=== PATIENT | male | born 1960 | race Caucasian/White ===

== ENCOUNTER → 2016-08-20 08:41 | Outpatient (CLI) | payer OTHER, MEDICARE ==
[~2016-08-20 08:41] MED LIST: CARAFATE1 G; CHRONULAC30 ML PO; INDERAL10 MG; MULTI-DAY VITAM1 TAB PO; PEPCID20 MG PO; PROTONIX40 MG PO; TYLENOL 8 HOUR650 MG PO
[2016-08-20 09:22] LABS: BASOPHILS 0.6 % (0.0-2.0); EOSINOPHILS 2.3 % (0-7); HEMATOCRIT 39.3 % (42.0-54.0); HEMOGLOBIN 13.2 g/dL (13.5-17.5); IMMATURE GRANULOCYTES 0.1 % (0-5); LYMPHOCYTES 25.9 % (15-50); MCH 28.3 pg (26.0-34.0); MCHC 33.6 g/dL (31.0-37.0); MCV 84.3 fL (80.0-100.0); MEAN PLATELET VOLUME 12.2 fL (7.4-10.4); MONOCYTES 11.3 % (2-11); NEUTROPHILS 59.8 % (40-80); PLATELET COUNT 125 10x3/uL (130-400); RBC 4.66 10x6/uL (4.20-6.10); RDW 15.3 % (11.5-14.5); WBC 6.8 10x3/uL (4.8-10.8)
[2016-08-20 09:29] LABS: INR 1.28 (0.85-1.17); PROTIME 15.9 SECONDS (11.6-15.0)
== END | disposition home or self-care (01) ==
LOC: D.US 08:41
PROVIDERS: Internal Medicine Gastroenterology
DX: K70.30 Alcoholic cirrhosis of liver without ascites (principal)

== ENCOUNTER → 2017-02-19 08:53 | Outpatient (CLI) | payer OTHER, MEDICARE ==
[2017-02-19 09:22] LABS: BASOPHILS 0.8 % (0-2); EOSINOPHILS 2.1 % (0-7); HEMATOCRIT 39.1 % (42.0-54.0); HEMOGLOBIN 13.3 g/dL (13.5-17.5); IMMATURE GRANULOCYTES 0.3 % (0-5); LYMPHOCYTES 27.3 % (15-50); MCH 28.7 pg (26.0-34.0); MCV 84.3 fL (80.0-100.0); MONOCYTES 11.3 % (2-11); NEUTROPHILS 58.2 % (40-80); RBC 4.64 10x6/uL (4.20-6.10); RDW 15.9 % (11.5-14.5); WBC 6.2 10x3/uL (4.8-10.8)
[2017-02-19 09:28] LABS: INR 1.24 (0.85-1.17); PROTIME 15.4 SECONDS (11.6-15.0)
[2017-02-19 09:35] LABS: ALBUMIN 3.3 g/dL (3.4-5.0); ALKALINE PHOSPHATASE 51 U/L (46-116); ALT (SGPT) 27 U/L (10-68); BILIRUBIN - TOTAL 1.68 mg/dL (0.2-1.3); CALC OSMOLALITY 277 mosm/kg (275-300); CALCIUM 8.6 mg/dL (8.5-10.1); CARBON DIOXIDE 27.6 mmol/L (21.0-32.0); CHLORIDE - SERUM 106 mmol/L (98-107); GLUCOSE 87 mg/dL (74-106); POTASSIUM - SERUM 4.2 mmol/L (3.5-5.1); PROTEIN - SERUM 6.6 g/dL (6.4-8.2); SODIUM 140 mmol/L (136-145); UREA NITROGEN 13 mg/dL (7-18); eGFR NON AFRICAN AMERICAN 82 mL/min (90-120)
[2017-02-19 09:41] LABS: PLATELET COUNT 93 10x3/uL (130-400)
[2017-02-19 10:53] LABS: PLATELET ESTIMATE DECREASED
== END | disposition home or self-care (01) ==
LOC: D.LAB 08:53 → D.US 09:30 → D.CT 10:00
PROVIDERS: Internal Medicine Gastroenterology
DX: K74.60 Unspecified cirrhosis of liver (principal); I86.4 Gastric varices; K76.6 Portal hypertension; I81 Portal vein thrombosis

== ENCOUNTER 2017-05-20 09:34 | Day surgery (SDC) | payer OTHER, MEDICARE ==
[~2017-05-20 09:34] MED LIST changes: -INDERAL10 MG; +INDERAL10 MG PO
[2017-05-20 10:12] VITALS: BP 150/66; BMI 23.7
[2017-05-20 10:28] LABS: APTT 39.7 SECONDS (22.8-39.4)
[2017-05-20 10:29] LABS: HEMATOCRIT 39.3 % (42.0-54.0); HEMOGLOBIN 13.4 g/dL (13.5-17.5); INR 1.24 (0.85-1.17); MCH 28.8 pg (26.0-34.0); MCHC 34.1 g/dL (31.0-37.0); MCV 84.3 fL (80.0-100.0); PLATELET COUNT 103 10x3/uL (130-400); PROTIME 15.5 SECONDS (11.6-15.0); RBC 4.66 10x6/uL (4.20-6.10); RDW 15.8 % (11.5-14.5); WBC 5.9 10x3/uL (4.8-10.8)
[2017-05-20 10:35] LABS: ALBUMIN 3.3 g/dL (3.4-5.0); ALKALINE PHOSPHATASE 50 U/L (46-116); ALT (SGPT) 28 U/L (10-68); BILIRUBIN - TOTAL 1.61 mg/dL (0.2-1.3); CALC OSMOLALITY 279 mosm/kg (275-300); CALCIUM 9.3 mg/dL (8.5-10.1); CARBON DIOXIDE 25.1 mmol/L (21.0-32.0); CHLORIDE - SERUM 108 mmol/L (98-107); CREATININE - SERUM 0.9 mg/dL (0.6-1.3); GLUCOSE 86 mg/dL (74-106); PROTEIN - SERUM 6.8 g/dL (6.4-8.2); SODIUM 141 mmol/L (136-145); UREA NITROGEN 13 mg/dL (7-18); eGFR NON AFRICAN AMERICAN > 90 mL/min (90-120)
[2017-05-20 10:36] LABS: POTASSIUM - SERUM 4.4 mmol/L (3.5-5.1)
--- NOTE | 2017-05-20 13:19 | NUR ---
1320 DISCHARGE INSTRUCTIONS COMPLETE. PT HAS NO QUESTIONS OR CONCERNS AT THIS TIME. ESCORTED OUT BY VOLUNTEER.
--- NOTE | 2017-06-04 07:24 | OP ---
PATIENT NAME: MARIA D HERNANDEZ MEDICAL RECORD: [id number] :62 LOCATION:[facility] ADMISSION DATE: SURGEON: RENATE WAITE DO DATE OF OPERATION: 05/20/2017 PROCEDURE: EGD. INDICATION FOR PROCEDURE: Surveillance of esophageal varices in known cirrhosis of the liver. SCOPE: maniaTV video gastroscope. MEDICATIONS: Propofol 300 mg IV per anesthesia. ESTIMATED BLOOD LOSS: None. COMPLICATIONS: None. FINDINGS: Informed consent was given. The patient was made comfortable with the above medication. After reaching an adequate level of sedation by slow IV push, the patient was placed on his left side. The endoscope was then advanced under direct visualization through the mouth to the second portion of the duodenum. The upper esophagus appeared normal. In the middle esophagus, there were grade III esophageal varices without bleeding stigmata or evidence of past bleeding. The origination of these vessels was cleared as the distal esophagus appeared to be decompressed. For these reasons, no bands were placed on the middle esophageal varices. As the endoscope was advanced into the distal esophagus, there was evidence of past varices and scars from previous banding. There are no active varices in the distal esophagus. The GE junction revealed some mild LA class A reflux-induced esophagitis, but was otherwise normal. The endoscope was advanced beyond the GE junction into the stomach and retroflexed to view the cardia and fundus where gastric varices were visualized without bleeding stigmata. The entire stomach exhibited portal hypertensive gastropathy of mild severity in a diffuse pattern. The endoscope was advanced beyond the antrum and pylorus into the duodenum where the bulb and second portion of the duodenum appeared normal. The endoscope was then withdrawn from the patient. The patient tolerated the procedure well and there were no complications. IMPRESSION: 1. Grade III mid esophageal varices without bleeding stigmata. 2. Previous distal esophageal varices which have been banded in the past or decompressed. 3. LA class A reflux-induced esophagitis. 4. Portal hypertensive gastropathy. 5. Gastric varices. PLAN AND RECOMMENDATIONS: 1. Discharge home when recovery parameters are met. 2. Continue current diet. 3. Continue current medications. 4. Follow up in GI clinic every 6 months as scheduled. 5. Repeat EGD in 1 year for continued surveillance of esophageal varices with banding if indicated. TRANSINT:[id number] Voice Confirmation ID: [id number] DOCUMENT ID: [id number] OPERATIVE REPORT [id number] MARIA D HERNANDEZ,RENATE Santiago DO at 0724 CC: [id number] DICTATION DATE: 05/20/17 1236 GRADER MARKER: 05/20/17 1306 [facility] 05/20/17 [place] [id number] [place] [id number]
== END 2017-05-20 13:20 | disposition home or self-care (01) ==
LOC: D.OPS 09:34
PROVIDERS: Internal Medicine Gastroenterology
DX: K74.60 Unspecified cirrhosis of liver (principal); I85.10 Secondary esophageal varices without bleeding; K21.0 Gastro-esophageal reflux disease with esophagitis; K76.6 Portal hypertension; K31.89 Other diseases of stomach and duodenum; I86.4 Gastric varices; Z01.812 Encounter for preprocedural laboratory examination

== ENCOUNTER → 2017-08-26 08:35 | Outpatient (CLI) | payer OTHER, MEDICARE ==
[2017-08-26 09:28] LABS: INR 1.18 (0.85-1.17); PROTIME 14.6 SECONDS (11.6-15.0)
[2017-08-26 09:33] LABS: ALBUMIN 3.3 g/dL (3.4-5.0); ALKALINE PHOSPHATASE 48 U/L (46-116); ALT (SGPT) 27 U/L (10-68); CALC OSMOLALITY 279 mosm/kg (275-300); CALCIUM 8.8 mg/dL (8.5-10.1); CARBON DIOXIDE 26.9 mmol/L (21.0-32.0); CHLORIDE - SERUM 107 mmol/L (98-107); GLUCOSE 92 mg/dL (74-106); POTASSIUM - SERUM 4.7 mmol/L (3.5-5.1); PROTEIN - SERUM 6.5 g/dL (6.4-8.2); SODIUM 141 mmol/L (136-145); UREA NITROGEN 11 mg/dL (7-18); eGFR NON AFRICAN AMERICAN 82 mL/min (90-120)
== END | disposition home or self-care (01) ==
LOC: D.US 08:35
PROVIDERS: Internal Medicine Gastroenterology
DX: K74.60 Unspecified cirrhosis of liver (principal)

== ENCOUNTER → 2018-02-24 08:49 | Outpatient (CLI) | payer OTHER, MEDICARE ==
[2018-02-24 10:28] LABS: INR 1.28 (0.85-1.17); PROTIME 15.5 SECONDS (11.6-15.0)
[2018-02-24 10:29] LABS: BASOPHILS 0.9 % (0-2); EOSINOPHILS 2.2 % (0-7); HEMATOCRIT 38.7 % (42.0-54.0); HEMOGLOBIN 13.5 g/dL (13.5-17.5); IMMATURE GRANULOCYTES 0.1 % (0-5); MCH 28.8 pg (26.0-34.0); MCHC 34.9 g/dL (31.0-37.0); MCV 82.7 fL (80.0-100.0); NEUTROPHILS 58.8 % (40-80); PLATELET COUNT 89 10x3/uL (130-400); RBC 4.68 10x6/uL (4.20-6.10); RDW 16.1 % (11.5-14.5); WBC 6.7 10x3/uL (4.8-10.8)
[2018-02-24 10:38] LABS: ALBUMIN 3.4 g/dL (3.4-5.0); ANION GAP 12.8 mmol/L (8-16); BILIRUBIN - TOTAL 1.47 mg/dL (0.2-1.3); CALCIUM 8.9 mg/dL (8.5-10.1); CARBON DIOXIDE 25.8 mmol/L (21.0-32.0); CREATININE - SERUM 1.1 mg/dL (0.6-1.3); POTASSIUM - SERUM 4.6 mmol/L (3.5-5.1); PROTEIN - SERUM 6.9 g/dL (6.4-8.2)
[2018-02-24 10:41] LABS: MEAN PLATELET VOLUME 12.4 fL (7.4-10.4)
[2018-02-24 11:10] LABS: PLATELET ESTIMATE DECREASED
== END | disposition home or self-care (01) ==
LOC: D.US 02-19 09:30 → D.LAB 02-19 10:15 → D.US 08:49
PROVIDERS: Internal Medicine Gastroenterology
DX: K74.60 Unspecified cirrhosis of liver (principal); K76.6 Portal hypertension; E72.20 Disorder of urea cycle metabolism, unspecified; R93.2 Abnormal findings on diagnostic imaging of liver and biliary tract

== ENCOUNTER 2018-05-26 09:31 | Day surgery (SDC) | payer OTHER, MEDICARE ==
[~2018-05-26] VITALS: Ht 177.8 cm; Wt 77.3 kg
--- NOTE | ~2018-05-26 | OP ---
PATIENT NAME: MARIA D HERNANDEZ MEDICAL RECORD: [id number] :62 LOCATION:D.[facility] ADMISSION DATE: SURGEON: RENATE WAITE DO DATE OF OPERATION: 05/26/2018 PROCEDURE: EGD with variceal band ligation. SCOPE: Olympus video gastroscope. MEDICATIONS: Propofol IV per anesthesia. ESTIMATED BLOOD LOSS: Minimal. COMPLICATIONS: None. FINDINGS: Informed consent was given. The patient was made comfortable with the above medication. After reaching an adequate level of sedation by slow IV push, the patient was placed on his left side. The endoscope was advanced under direct visualization through the mouth to the second portion of the duodenum. In the upper and middle esophagus, there were grade III to grade IV esophageal varices with a few red algaaciq present. The endoscope was advanced beyond this site into the distal esophagus, where previous bandings could be visualized. The distal esophagus was free of varices. The endoscope was advanced down to the GE junction, where there was some mild LA class A reflux-induced esophagitis. The endoscope was advanced beyond the GE junction into the stomach and retroflexed to view the cardia and fundus. There were gastric varices present without evidence of recent bleeding or stigmata of bleeding. Throughout the body and antrum of the stomach, there was evidence of portal hypertensive gastropathy. In the antrum of the stomach, there was a single avascular malformation which did not show any bleeding stigmata. The endoscope was advanced into the duodenum, where the entire exam in duodenum down to the second portion appeared normal. The endoscope was then withdrawn from the patient and the Speedband cap was placed for variceal band ligation. The endoscope was advanced back down to the midesophagus and to the distal edge of the large grade III to grade IV varices. Three bands were applied on 3 segments of varices successfully. The endoscope was then withdrawn from the patient. The patient tolerated the procedure well and there were no complications. IMPRESSION: 1. Grade III to grade IV esophageal varices in mid to proximal esophagus, status post banding times 3. 2. LA class A reflux-induced esophagitis. 3. Gastric varices without bleeding stigmata. 4. Portal hypertensive gastropathy. 5. 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 PLAN AND RECOMMENDATIONS: 1. Discharge home when recovery parameters are met. 2. Diet should consist of liquids times 48 hours followed by soft diet times 48 hours followed by regular diet. 3. Continue current medications. 4. We will plan on repeating EGD in approximately 4 weeks for continued banding until varices are eradicated. 5. Once esophageal varices are eradicated, attention may be given to gastric varices. May need to consider a TIPS procedure versus referral to [facility] for OPERATIVE REPORT [id number] MARIA D HERNANDEZ consideration of obliteration of gastric varices. TRANSINT:[id number] Voice Confirmation ID: [id number] DOCUMENT ID: [id number] RENATE WAITE DO at 1403 CC: [id number] DICTATION DATE: 05/26/18 1135 WIRE BENDER HAND: 05/26/18 1432 [facility] 05/26/18 [place] [id number] [place] [address]
[2018-05-26] MEDS ORDERED: CHRONULAC30 ML PO (10:27)
[2018-05-26 10:33] VITALS: Ht 177.8 cm; Wt 77.3 kg
[2018-05-26 10:38] LABS: HEMATOCRIT 35.6 % (42.0-54.0); HEMOGLOBIN 12.1 g/dL (13.5-17.5); MCH 28.5 pg (26.0-34.0); MEAN PLATELET VOLUME 11.6 fL (7.4-10.4); RBC 4.24 10x6/uL (4.20-6.10); RDW 15.5 % (11.5-14.5); WBC 4.9 10x3/uL (4.8-10.8)
[2018-05-26 11:07] LABS: APTT 39.7 SECONDS (22.8-39.4); INR 1.32 (0.85-1.17); PROTIME 15.9 SECONDS (11.6-15.0)
[2018-05-26 12:40] LABS: ALBUMIN 2.9 g/dL (3.4-5.0); ALKALINE PHOSPHATASE 48 U/L (46-116); ALT (SGPT) 29 U/L (10-68); BILIRUBIN - TOTAL 1.17 mg/dL (0.2-1.3); CALC OSMOLALITY 284 mosm/kg (275-300); CARBON DIOXIDE 25.2 mmol/L (21.0-32.0); CHLORIDE - SERUM 110 mmol/L (98-107); CREATININE - SERUM 0.9 mg/dL (0.6-1.3); GLUCOSE 82 mg/dL (74-106); POTASSIUM - SERUM 4.6 mmol/L (3.5-5.1); PROTEIN - SERUM 6.2 g/dL (6.4-8.2); SODIUM 143 mmol/L (136-145); UREA NITROGEN 14 mg/dL (7-18); eGFR NON AFRICAN AMERICAN > 90 mL/min (90-120)
== END 2018-05-26 12:34 | disposition home or self-care (01) ==
LOC: D.OPS 09:31
PROVIDERS: Anesthesiology
DX: K21.0 Gastro-esophageal reflux disease with esophagitis (principal); K76.6 Portal hypertension; K31.89 Other diseases of stomach and duodenum; I85.10 Secondary esophageal varices without bleeding; K29.50 Unspecified chronic gastritis without bleeding; I86.4 Gastric varices; K31.819 Angiodysplasia of stomach and duodenum without bleeding; Z01.812 Encounter for preprocedural laboratory examination

== ENCOUNTER 2018-08-04 08:05 | Day surgery (SDC) | payer OTHER, MEDICARE ==
[~2018-08-04] VITALS: Ht 177.8 cm; Wt 77.3 kg
[2018-08-04 08:22] LABS: BASOPHILS 1.2 % (0-2); EOSINOPHILS 2.3 % (0-7); HEMATOCRIT 37.1 % (42.0-54.0); HEMOGLOBIN 12.7 g/dL (13.5-17.5); IMMATURE GRANULOCYTES 0.2 % (0-5); LYMPHOCYTES 22.5 % (15-50); MCH 28.7 pg (26.0-34.0); MCHC 34.2 g/dL (31.0-37.0); MCV 83.7 fL (80.0-100.0); MEAN PLATELET VOLUME 11.5 fL (7.4-10.4); MONOCYTES 12.3 % (2-11); NEUTROPHILS 61.5 % (40-80); PLATELET COUNT 110 10x3/uL (130-400); RBC 4.43 10x6/uL (4.20-6.10); WBC 5.6 10x3/uL (4.8-10.8)
[2018-08-04 08:38] LABS: APTT 41.5 SECONDS (22.8-39.4); INR 1.21 (0.85-1.17); PROTIME 14.8 SECONDS (11.6-15.0)
[2018-08-04 08:44] LABS: ANION GAP 10.6 mmol/L (8-16); BILIRUBIN - TOTAL 1.45 mg/dL (0.2-1.3); CALCIUM 8.3 mg/dL (8.5-10.1); CARBON DIOXIDE 26.8 mmol/L (21.0-32.0); CREATININE - SERUM 1.1 mg/dL (0.6-1.3); POTASSIUM - SERUM 4.4 mmol/L (3.5-5.1); PROTEIN - SERUM 6.5 g/dL (6.4-8.2)
[2018-08-04 08:46] VITALS: BP 127/67; Ht 177.8 cm; Wt 77.3 kg
--- NOTE | 2018-08-04 10:50 | NUR ---
DC INSTRUCTIONS GIVEN TO PT/FAMILY. STATE UNDERSTANDING. DC'D IV CATH FULLY INTACT.
--- NOTE | 2018-08-04 10:55 | NUR ---
PT LEFT UNIT VIA WC AT 1055
--- NOTE | 2018-08-09 10:43 | OP ---
PATIENT NAME: MARIA D HERNANDEZ MEDICAL RECORD: [id number] :62 LOCATION:[facility] ADMISSION DATE: SURGEON: RENATE WAITE DO DATE OF OPERATION: 08/04/2018 PROCEDURE: EGD with variceal ligation. INDICATIONS FOR PROCEDURE: Esophageal varices status post banding in the past. The patient's last EGD was performed 05/26/2018. The patient also has gastric varices. SCOPE: Olympus video gastroscope. MEDICATIONS: Propofol 300 mg IV per anesthesia. ESTIMATED BLOOD LOSS: Minimal. COMPLICATIONS: None. FINDINGS: Informed consent was given. The patient was made comfortable with the above medication. After reaching an adequate level of sedation by slow IV push, the patient was placed on his left side. The endoscope was advanced under direct visualization through the mouth to the second portion of the duodenum with ease. In the middle esophagus, there were grade II to grade III esophageal varices in 2 major columns. There were no bleeding stigmata present. The endoscope was advanced beyond this site into the distal esophagus where previous banding could be visualized, but there were no varices present. At the GE junction, there was some mild LA class A reflux-induced esophagitis. The endoscope was advanced beyond the GE junction into the stomach and retroflexed to view the cardia and fundus where the previously visualized gastric varices were again seen. There was no evidence of bleeding stigmata visualized. Throughout the body and antrum of the stomach, there was evidence of very mild portal hypertensive gastropathy. The endoscope was advanced beyond the pylorus into the duodenum. The duodenum appeared normal down to the second portion. The endoscope was then withdrawn from the patient and the speed harness builder was placed over the endoscope for variceal band ligation. The endoscope was advanced back down to the mid esophagus and the distal edge of the two columns of varices. A band was placed on each of these columns totaling 2 bands successfully. The endoscope was then withdrawn from the patient. The patient tolerated the procedure well and there were no complications. IMPRESSION: 1. Grade II to grade III esophageal varices in the mid esophagus status post banding times 2. 2. LA class A reflux-induced esophagitis. 3. Gastric varices without bleeding stigmata. 4. Portal hypertensive gastropathy. PLAN AND RECOMMENDATIONS: 1. Discharge home when recovery parameters are met. 2. Liquid diet times 48 hours followed by soft diet times 48 hours, then regular. 3. Continue current medications. 4. We will anticipate repeating EGD in approximately 6 months with banding if indicated. OPERATIVE REPORT [id number] MARIA D HERNANDEZ 5. Consider referral to [facility] regarding gastric varices. These could potentially be eradicated utilizing EUS with coil placement and cyanoacrylate. TRANSINT:[id number] Voice Confirmation ID: [id number] DOCUMENT ID: [id number] RENATE WAITE DO at 1043 CC: [id number] DICTATION DATE: 08/04/18 1018 STEP FINISHER: 08/04/18 1246 [facility] 08/04/18 [facility] [address] [place] [address]
== END 2018-08-04 10:55 | disposition home or self-care (01) ==
LOC: D.OPS 08:05
PROVIDERS: Anesthesiology
DX: I85.00 Esophageal varices without bleeding (principal); K21.0 Gastro-esophageal reflux disease with esophagitis; I86.4 Gastric varices; K76.6 Portal hypertension; K31.89 Other diseases of stomach and duodenum; Z01.812 Encounter for preprocedural laboratory examination

== ENCOUNTER → 2018-08-25 07:49 | Outpatient (CLI) | payer OTHER, MEDICARE ==
[2018-08-04 08:46] VITALS: BMI 24.4
[2018-08-25 08:38] LABS: EOSINOPHILS 1.8 % (0-7); HEMATOCRIT 36.1 % (42.0-54.0); HEMOGLOBIN 12.4 g/dL (13.5-17.5); IMMATURE GRANULOCYTES 0.1 % (0-5); LYMPHOCYTES 17.2 % (15-50); MCH 28.4 pg (26.0-34.0); MCHC 34.3 g/dL (31.0-37.0); MCV 82.8 fL (80.0-100.0); MEAN PLATELET VOLUME 12.4 fL (7.4-10.4); MONOCYTES 13.8 % (2-11); NEUTROPHILS 66.1 % (40-80); PLATELET COUNT 114 10x3/uL (130-400); RBC 4.36 10x6/uL (4.20-6.10); RDW 15.3 % (11.5-14.5); WBC 6.8 10x3/uL (4.8-10.8)
[2018-08-25 08:45] LABS: INR 1.27 (0.85-1.17); PROTIME 15.3 SECONDS (11.6-15.0)
[2018-08-25 08:50] LABS: ALBUMIN 2.9 g/dL (3.4-5.0); ANION GAP 12.9 mmol/L (8-16); BILIRUBIN - TOTAL 1.11 mg/dL (0.2-1.3); CALCIUM 8.2 mg/dL (8.5-10.1); CARBON DIOXIDE 24.4 mmol/L (21.0-32.0); CREATININE - SERUM 1.1 mg/dL (0.6-1.3); POTASSIUM - SERUM 4.3 mmol/L (3.5-5.1); PROTEIN - SERUM 6.4 g/dL (6.4-8.2)
== END | disposition home or self-care (01) ==
LOC: D.US 07:49
PROVIDERS: Internal Medicine Gastroenterology
DX: K74.60 Unspecified cirrhosis of liver (principal); K76.6 Portal hypertension; E72.20 Disorder of urea cycle metabolism, unspecified

== ENCOUNTER 2018-10-20 06:58 | Day surgery (SDC) | payer OTHER, MEDICARE ==
[~2018-10-20] VITALS: Ht 177.8 cm; Wt 81.2 kg
[2018-10-20 07:28] LABS: INR 1.38 (0.85-1.17); PROTIME 16.4 SECONDS (11.6-15.0)
[2018-10-20 07:29] LABS: APTT 46.5 SECONDS (22.8-39.4)
[2018-10-20 07:33] LABS: ALBUMIN 3.2 g/dL (3.4-5.0); ANION GAP 12.1 mmol/L (8-16); BILIRUBIN - TOTAL 1.91 mg/dL (0.2-1.3); CALCIUM 8.6 mg/dL (8.5-10.1); CARBON DIOXIDE 26.3 mmol/L (21.0-32.0); CREATININE - SERUM 1.1 mg/dL (0.6-1.3); POTASSIUM - SERUM 4.4 mmol/L (3.5-5.1); PROTEIN - SERUM 6.8 g/dL (6.4-8.2)
[2018-10-20] MEDS ORDERED: XIFAXAN550 MG PO (07:47)
[2018-10-20 08:09] LABS: HEMATOCRIT 39.5 % (42.0-54.0); HEMOGLOBIN 13.6 g/dL (13.5-17.5); MCH 28.3 pg (26.0-34.0); MCHC 34.4 g/dL (31.0-37.0); MCV 82.3 fL (80.0-100.0); PLATELET COUNT 118 10x3/uL (130-400); RDW 15.3 % (11.5-14.5); WBC 6.4 10x3/uL (4.8-10.8)
[2018-10-20 08:27] VITALS: BP 127/71; Ht 177.8 cm; Wt 81.2 kg
--- NOTE | 2018-10-20 10:12 | NUR ---
DC INSTRUCTIONS GIVEN TO PT/FAMILY. STATE UNDERSTANDING. DC'D IV CATH FULLY INTACT.
--- NOTE | 2018-10-20 10:14 | NUR ---
PT LEFT UNIT VIA WC AT 1015
--- NOTE | 2018-10-20 14:22 | OP ---
PATIENT NAME: MARIA D HERNANDEZ MEDICAL RECORD: [id number] :62 LOCATION:D.[facility] ADMISSION DATE: SURGEON: RENATE WAITE DO DATE OF OPERATION: 10/20/2018 PROCEDURE: Colonoscopy with polypectomy. INDICATIONS FOR PROCEDURE: Screening for colorectal cancer. SCOPE: Olympus video pediatric colonoscope. MEDICATIONS: Propofol 400 mg IV per anesthesia. WITHDRAWAL TIME: 13 minutes. ESTIMATED BLOOD LOSS: Minimal. COMPLICATIONS: None. FINDINGS AND DESCRIPTION OF PROCEDURE: Informed consent was given. The patient was made comfortable with the above medication. After reaching an adequate level of sedation by slow IV push, the patient was placed on his left side. A digital rectal examination was performed and was normal. The endoscope was then advanced under direct visualization through the rectum to the cecum and terminal ileum. The endoscope was slowly withdrawn and the mucosa was carefully examined. The prep quality was good. There were 4 polyps visualized on today's examination. One was located in the ascending colon. It was a benign appearing sessile polyp, which measured approximately 3-mm in diameter. It was removed using a hot forceps in one piece and completely retrieved. In the descending colon, there were 3 separate polyps, which were benign-appearing and sessile and ranged in size from 3 to 5 mm in diameter. They were all removed using hot forceps in one piece and completely retrieved. There was evidence of mild diverticulosis involving the descending and sigmoid colon. Retroflexion was performed in the rectum with visualization of grade I internal hemorrhoids without bleeding. The endoscope was withdrawn from the patient. The patient tolerated the procedure well and there were no complications. IMPRESSION: 1. Four polyps as described above, removed using hot forceps. 2. Mild diverticulosis of the descending and sigmoid colon. 3. Grade I internal hemorrhoids without bleeding. PLAN AND RECOMMENDATIONS: 1. Discharge home when recovery parameters are met. 2. Follow up biopsy specimen results. 3. High fiber diet. 4. Continue current medications. 5. Recall colonoscopy in 3-5 years for surveillance based on personal history of polyps. TRANSINT:[id number] Voice Confirmation ID: [id number] DOCUMENT ID: [id number] OPERATIVE REPORT [id number] MARIA D HERNANDEZ RENATE WAITE DO at 0028 CC: [id number] DICTATION DATE: 10/20/18922 INTERNATIONAL REPRESENTATIVE: 10/20/18 1050 DEP SDC 10/20/18 [facility] [address] [place] [address]
== END 2018-10-20 10:15 | disposition home or self-care (01) ==
LOC: D.OPS 06:58
PROVIDERS: Anesthesiology; ATTEND Internal Medicine Gastroenterology
DX: Z12.11 Encounter for screening for malignant neoplasm of colon (principal); D12.2 Benign neoplasm of ascending colon; K63.5 Polyp of colon; K57.30 Diverticulosis of large intestine without perforation or abscess without bleeding; K64.0 First degree hemorrhoids; Z01.812 Encounter for preprocedural laboratory examination

== ENCOUNTER → 2019-01-19 06:52 | Outpatient (CLI) | payer OTHER, MEDICARE ==
[2018-10-20 08:27] VITALS: BMI 25.7
[~2019-01-19 06:52] MED LIST changes: +XIFAXAN550 MG PO
[2019-01-19 07:37] LABS: BASOPHILS 1.5 % (0-2); EOSINOPHILS 3.1 % (0-7); HEMATOCRIT 35.8 % (42.0-54.0); HEMOGLOBIN 12.4 g/dL (13.5-17.5); IMMATURE GRANULOCYTES 0.2 % (0-5); LYMPHOCYTES 30.9 % (15-50); MCH 28.2 pg (26.0-34.0); MCHC 34.6 g/dL (31.0-37.0); MCV 81.4 fL (80.0-100.0); NEUTROPHILS 48.3 % (40-80); RDW 15.9 % (11.5-14.5); WBC 4.6 10x3/uL (4.8-10.8)
[2019-01-19 07:38] LABS: PLATELET COUNT 91 10x3/uL (130-400)
[2019-01-19 07:41] LABS: ALBUMIN 3.1 g/dL (3.4-5.0); ANION GAP 9.5 mmol/L (8-16); BILIRUBIN - TOTAL 1.42 mg/dL (0.2-1.3); CALCIUM 8.8 mg/dL (8.5-10.1); CARBON DIOXIDE 29.6 mmol/L (21.0-32.0); CREATININE - SERUM 1.1 mg/dL (0.6-1.3); POTASSIUM - SERUM 4.1 mmol/L (3.5-5.1); PROTEIN - SERUM 6.3 g/dL (6.4-8.2)
[2019-01-19 07:47] LABS: INR 1.26 (0.85-1.17); PROTIME 15.3 SECONDS (11.6-15.0)
[2019-01-19 08:03] LABS: PLATELET ESTIMATE DECREASED
[2019-01-19 08:04] LABS: HYPOCHROMASIA OCC; ROULEAUX OCC
== END | disposition home or self-care (01) ==
LOC: D.US 06:52
PROVIDERS: ATTEND Internal Medicine Gastroenterology
DX: K74.60 Unspecified cirrhosis of liver (principal); K76.6 Portal hypertension; E72.20 Disorder of urea cycle metabolism, unspecified

== ENCOUNTER 2019-04-11 08:51 | Day surgery (SDC) | payer OTHER, MEDICARE ==
[~2019-04-11] VITALS: Ht 177.8 cm; Wt 82.3 kg
[2019-04-11 09:46] LABS: ALBUMIN 3.2 g/dL (3.4-5.0); ALKALINE PHOSPHATASE 59 U/L (46-116); ALT (SGPT) 26 U/L (10-68); BILIRUBIN - TOTAL 1.53 mg/dL (0.2-1.3); CALC OSMOLALITY 278 mosm/kg (275-300); CALCIUM 8.4 mg/dL (8.5-10.1); CARBON DIOXIDE 26.5 mmol/L (21.0-32.0); CHLORIDE - SERUM 110 mmol/L (98-107); GLUCOSE 83 mg/dL (74-106); POTASSIUM - SERUM 4.6 mmol/L (3.5-5.1); PROTEIN - SERUM 6.3 g/dL (6.4-8.2); SODIUM 141 mmol/L (136-145); UREA NITROGEN 11 mg/dL (7-18); eGFR NON AFRICAN AMERICAN 82 mL/min (90-120)
[2019-04-11 09:48] LABS: APTT 39.6 SECONDS (22.8-39.4); INR 1.3 (0.85-1.17); PROTIME 15.6 SECONDS (11.6-15.0)
[2019-04-11 10:21] VITALS: Ht 177.8 cm; Wt 82.3 kg
[2019-04-11 10:36] LABS: HEMATOCRIT 34.8 % (42.0-54.0); HEMOGLOBIN 12.2 g/dL (13.5-17.5); MCH 28.5 pg (26.0-34.0); MCHC 35.1 g/dL (31.0-37.0); MCV 81.3 fL (80.0-100.0); PLATELET COUNT 94 10x3/uL (130-400); RBC 4.28 10x6/uL (4.20-6.10); WBC 4.7 10x3/uL (4.8-10.8)
--- NOTE | 2019-04-11 11:14 | NUR ---
1112 DR.VOISE FARRAR.
--- NOTE | 2019-04-11 11:38 | NUR ---
1138 FL DIET SERVED.
[2019-04-11 12:03] LABS: PLATELET ESTIMATE DECREASED
--- NOTE | 2019-04-20 16:44 | OP ---
PATIENT NAME: MARIA D HERNANDEZ MEDICAL RECORD: [id number] :62 LOCATION:[facility] ADMISSION DATE: SURGEON: RENATE WAITE DO DATE OF OPERATION: 04/11/2019 PROCEDURE: EGD with band ligation. INDICATIONS FOR PROCEDURE: Surveillance of esophageal varices. His last upper endoscopy was 08/04/2018, at which point 2 bands were placed. SCOPE: Olympus video gastroscope. MEDICATIONS: Propofol 300 mg IV per anesthesia. ESTIMATED BLOOD LOSS: Minimal. COMPLICATIONS: None. FINDINGS: Informed consent was given. The patient was made comfortable with the above medication. After reaching an adequate level of sedation by slow IV push, the patient was placed on his left side. The endoscope was advanced under direct visualization through the mouth to the second portion of the duodenum with ease. The upper esophagus appeared normal. In the mid to mid distal esophagus, there were a few columns of grade II to grade III esophageal varices with a few obando red spot stigmata present. At the conclusion of the procedure, the [employer] speed assistant bookkeeper was placed on the end of the endoscope and a single band was placed over the largest column successfully. The GE junction appeared normal with a smooth appearing Z line. The endoscope was advanced beyond the GE junction in the stomach and retroflexed to view the cardia and fundus. There were large gastric varices, which have been visualized previously. There were no bleeding stigmata associated with this group of varices located in the fundus. Throughout the entire stomach, there was mild portal hypertensive gastropathy with congestion and erythema present. There was no active bleeding. The endoscope was advanced beyond the pylorus into the duodenum, which appeared normal down to the second portion. The endoscope was withdrawn from the patient. The patient tolerated the procedure well and there were no complications. IMPRESSION: 1. Grade II to grade III esophageal varices located in the mid to distal esophagus. A single variceal band was placed successfully. 2. Gastric varices located in the fundus without bleeding stigmata. 3. Portal hypertensive gastropathy. PLAN AND RECOMMENDATIONS: 1. Discharge home when recovery parameters are met. 2. Anticipate a recall EGD in 6 months for continued surveillance of esophageal varices. TRANSINT:[id number] Voice Confirmation ID: [id number] DOCUMENT ID: [id number] OPERATIVE REPORT [id number] MARIA D HERNANDEZ RENATE WAITE DO at 1644 CC: [id number] DICTATION DATE: 04/11/19 1100 SELF CONTAINED BEHAVIOR UNIT TEACHER: 04/11/[address] [facility] 04/11/19 [place] [id number] [place] [address]
== END 2019-04-11 11:55 | disposition home or self-care (01) ==
LOC: D.OPS 08:51
PROVIDERS: Anesthesiology; ATTEND Internal Medicine Gastroenterology
DX: I85.00 Esophageal varices without bleeding (principal); I86.4 Gastric varices; K76.6 Portal hypertension; K31.89 Other diseases of stomach and duodenum

== ENCOUNTER 2020-02-15 10:09 | Day surgery (SDC) | payer OTHER, MEDICARE ==
[~2020-02-15] VITALS: Ht 177.8 cm; Wt 81.8 kg
[2020-02-15 10:30] LABS: HEMATOCRIT 35.7 % (42.0-54.0); HEMOGLOBIN 11.9 g/dL (13.5-17.5); MCH 27.9 pg (26.0-34.0); MCHC 33.3 g/dL (31.0-37.0); MCV 83.6 fL (80.0-100.0); PLATELET COUNT 117 10x3/uL (130-400); RBC 4.27 10x6/uL (4.20-6.10); RDW 16.6 % (11.5-14.5); WBC 5.3 10x3/uL (4.8-10.8)
[2020-02-15 10:36] LABS: APTT 41.8 SECONDS (22.8-39.4); INR 1.25 (0.85-1.17); PROTIME 15.7 SECONDS (11.6-15.0)
[2020-02-15 10:44] LABS: ALBUMIN 3.2 g/dL (3.4-5.0); ALKALINE PHOSPHATASE 57 U/L (30-120); ALT (SGPT) 25 U/L (10-68); CALC OSMOLALITY 283 mosm/kg (275-300); CALCIUM 8.7 mg/dL (8.5-10.1); CARBON DIOXIDE 28.4 mmol/L (21.0-32.0); CHLORIDE - SERUM 109 mmol/L (98-107); GLUCOSE 87 mg/dL (74-106); POTASSIUM - SERUM 4.3 mmol/L (3.5-5.1); PROTEIN - SERUM 6.6 g/dL (6.4-8.2); SODIUM 143 mmol/L (136-145); UREA NITROGEN 13 mg/dL (7-18); eGFR NON AFRICAN AMERICAN 81 mL/min (90-120)
[2020-02-15 11:05] VITALS: BP 152/65; Ht 177.8 cm; Wt 81.8 kg
[2020-02-15] MEDS ORDERED: CHRONULAC30 ML (11:09)
[2020-02-15] MEDS ORDERED: PROTONIX40 MG PO (11:13)
--- NOTE | 2020-02-15 13:48 | NUR ---
1335 IV REMOVED AND PRESURE HELD. POST OP INSTRUCTIONS GIVEN
--- NOTE | 2020-02-17 15:58 | OP ---
PATIENT NAME: MARIA D HERNANDEZ MEDICAL RECORD: [id number] :62 LOCATION:[facility] ADMISSION DATE: SURGEON: RENATE WAITE DO DATE OF OPERATION: 02/15/2020 PROCEDURE: Diagnostic EGD with esophageal varices surveillance. The patient's last EGD took place in March of 2019. SCOPE: Olympus video gastroscope. MEDICATIONS: Propofol 250 mg IV per anesthesia. ESTIMATED BLOOD LOSS: None. COMPLICATIONS: None. FINDINGS: Informed consent was given. The patient was made comfortable with the above medication. After reaching an adequate level of sedation by slow IV push, the patient was placed on his left side. The endoscope was advanced under direct visualization through the mouth to the second portion of the duodenum with ease. In the esophagus, there were grade I to grade II esophageal varices without bleeding stigmata. There were previous scars from multiple previous bands placed. No interventions were performed on these varices today due to their improvement in size and appearance. At the GE junction, there was evidence of LA class A reflux-induced esophagitis. The endoscope was advanced beyond the GE junction into the stomach and retroflexed to view the cardia and fundus where there was a cluster of large gastric varices without bleeding stigmata. These have been reviewed multiple times in the past. Throughout the entire stomach, there was mild portal hypertensive gastropathy with congestion and erythema present. There was no active bleeding. The endoscope was advanced beyond the pylorus into the duodenum, which appeared normal to the second portion. The endoscope was then withdrawn from the patient. The patient tolerated the procedure well and there were no complications. IMPRESSION: 1. Grade I to grade II esophageal varices without bleeding stigmata. 2. LA class A reflux-induced esophagitis. 3. Gastric varices involving the cardia and fundus without bleeding stigmata. 4. Portal hypertensive gastropathy. PLAN AND RECOMMENDATIONS: 1. Discharge home when recovery parameters are met. 2. Continue current diet and current medications. 3. Recall EGD in 1 year for surveillance of esophageal varices. TRANSINT:[id number] Voice Confirmation ID: [id number] DOCUMENT ID: [id number] OPERATIVE REPORT [id number] MARIA D HERNANDEZ RENATE WAITE DO at 1551 CC: [id number] DICTATION DATE: 02/15/20 1251 LICENSED SALES PRODUCER: 02/15/20 1419 [facility] 02/15/20 [facility] [address] [place] [address]
== END 2020-02-15 13:45 | disposition home or self-care (01) ==
LOC: D.OPS 10:09
PROVIDERS: Anesthesiology; ATTEND Internal Medicine Gastroenterology
DX: I85.00 Esophageal varices without bleeding (principal); K21.0 Gastro-esophageal reflux disease with esophagitis; K76.6 Portal hypertension; K31.89 Other diseases of stomach and duodenum

== ENCOUNTER → 2020-05-02 09:36 | Outpatient (CLI) | payer OTHER, MEDICARE ==
[2020-02-15 11:05] VITALS: BMI 25.8
[~2020-05-02 09:36] MED LIST changes: +CHRONULAC30 ML
== END | disposition home or self-care (01) ==
LOC: D.CT 04-18 10:00
PROVIDERS: ATTEND Internal Medicine Gastroenterology
DX: R93.89 Abnormal findings on diagnostic imaging of other specified body structures (principal); K74.60 Unspecified cirrhosis of liver; K76.6 Portal hypertension

== ENCOUNTER → 2020-10-31 09:13 | Outpatient (CLI) | payer OTHER, MEDICARE ==
[2020-02-15 11:05] VITALS: BMI 25.8
[2020-10-31 09:43] LABS: INR 1.34 (0.85-1.17); PROTIME 15.4 SECONDS (11.6-15.0)
[2020-10-31 09:47] LABS: ALBUMIN 3.2 g/dL (3.4-5.0); ALKALINE PHOSPHATASE 57 U/L (30-120); ALT (SGPT) 30 U/L (10-68); BILIRUBIN - DIRECT 0.55 mg/dL (0.00-0.30); BILIRUBIN - INDIRECT 0.98 mg/dL (0.00-1.00); BILIRUBIN - TOTAL 1.53 mg/dL (0.2-1.3); CALC OSMOLALITY 280 mosm/kg (275-300); CALCIUM 8.8 mg/dL (8.5-10.1); CHLORIDE - SERUM 106 mmol/L (98-107); GLUCOSE 84 mg/dL (74-106); PROTEIN - SERUM 6.6 g/dL (6.4-8.2); SODIUM 141 mmol/L (136-145); UREA NITROGEN 14 mg/dL (7-18); eGFR NON AFRICAN AMERICAN 81 mL/min (90-120)
[2020-10-31 09:56] LABS: BASOPHILS 1.3 % (0-2); EOSINOPHILS 1.9 % (0-7); HEMATOCRIT 38.6 % (42.0-54.0); HEMOGLOBIN 12.8 g/dL (13.5-17.5); IMMATURE GRANULOCYTES 0.2 % (0-5); LYMPHOCYTE ABS# 1.77 10x3/uL (1.32-3.57); LYMPHOCYTES 28.7 % (15-50); MCH 27.8 pg (26.0-34.0); MCHC 33.2 g/dL (31.0-37.0); MCV 83.7 fL (80.0-100.0); MEAN PLATELET VOLUME 12.9 fL (7.4-10.4); MONOCYTES 11.3 % (2-11); NEUTROPHIL ABS# 3.49 10x3/uL (1.78-5.38); NEUTROPHILS 56.6 % (40-80); PLATELET COUNT 138 10x3/uL (130-400); RBC 4.61 10x6/uL (4.20-6.10); RDW 16.6 % (11.5-14.5); WBC 6.2 10x3/uL (4.8-10.8)
== END | disposition home or self-care (01) ==
LOC: D.LAB 10-24 08:00 → D.US 10-24 11:30 → D.LAB 09:13
PROVIDERS: ATTEND Internal Medicine Gastroenterology
DX: K74.60 Unspecified cirrhosis of liver (principal)